=== PATIENT | female | born 1965 | race Asian ===

== ENCOUNTER 2018-09-03 11:53 | Outpatient (CLI) | payer OTHER | END 2018-09-03 21:29 | disposition home or self-care (01) | LOC: US 11:53 | DX: R10.13 Epigastric pain (principal) ==

== ENCOUNTER 2020-08-24 12:55 | Outpatient (CLI) | payer OTHER | END 2020-08-24 19:14 | disposition home or self-care (01) | LOC: RAD 12:55 | PROVIDERS: ATTEND Nurse Practitioner Family | DX: M06.4 Inflammatory polyarthropathy (principal); M79.7 Fibromyalgia ==

== ENCOUNTER 2020-09-03 10:59 | Emergency (ER) | payer OTHER ==
[~2020-09-03] VITALS: Ht 165.1 cm; Wt 74.8 kg
[2020-09-03 11:08] VITALS: TEMP 98.6
[2020-09-03 14:25] VITALS: BP 121/78
== END 2020-09-03 14:29 | disposition home or self-care (01) ==
LOC: ED 10:59
DX: S42.211A Unspecified displaced fracture of surgical neck of right humerus, initial encounter for closed fracture (principal); W10.8XXA Fall (on) (from) other stairs and steps, initial encounter; Y92.89 Other specified places as the place of occurrence of the external cause
CPT/HCPCS: 96372; 99283; J1885

== ENCOUNTER 2020-09-09 10:49 | Outpatient (CLI) | payer OTHER | END 2020-09-09 20:13 | disposition home or self-care (01) | LOC: CT 10:49 | PROVIDERS: ATTEND Physician Assistant | DX: S42.221A 2-part displaced fracture of surgical neck of right humerus, initial encounter for closed fracture (principal) ==

== ENCOUNTER 2020-10-15 11:38 | Outpatient (CLI) | payer OTHER | END 2020-10-15 23:59 | disposition home or self-care (01) | LOC: RAD 11:38 | PROVIDERS: ATTEND Physician Assistant | DX: M25.511 Pain in right shoulder (principal) ==

== ENCOUNTER 2020-12-03 11:10 | Outpatient (CLI) | payer OTHER | END 2020-12-03 21:31 | disposition home or self-care (01) | LOC: RAD 11:10 | PROVIDERS: ATTEND Nurse Practitioner Family | DX: E55.9 Vitamin D deficiency, unspecified (principal); M06.09 Rheumatoid arthritis without rheumatoid factor, multiple sites; M06.4 Inflammatory polyarthropathy; M85.89 Other specified disorders of bone density and structure, multiple sites; M25.511 Pain in right shoulder ==

== ENCOUNTER 2021-01-24 13:02 | Outpatient (CLI) | payer OTHER | END 2021-01-24 22:30 | disposition home or self-care (01) | LOC: MRI 13:02 | PROVIDERS: ATTEND Physician Assistant | DX: M25.511 Pain in right shoulder (principal) ==

== ENCOUNTER 2022-08-16 08:46 | Outpatient (CLI) | payer OTHER | END 2022-08-16 23:56 | disposition home or self-care (01) | LOC: LABW 08:46 | PROVIDERS: ATTEND Podiatrist | DX: B35.1 Tinea unguium (principal) | CPT/HCPCS: 36415; 84450; 84460 ==

== ENCOUNTER 2022-09-18 13:25 | Outpatient (CLI) | payer OTHER | END 2022-09-18 18:59 | disposition home or self-care (01) | LOC: LABW 13:25 | PROVIDERS: ATTEND Podiatrist | DX: B35.1 Tinea unguium (principal) | CPT/HCPCS: 36415; 84450; 84460 ==

== ENCOUNTER 2023-01-17 10:00 | Day surgery (SDC) | payer OTHER | END 2023-01-17 12:35 | disposition home or self-care (01) | LOC: OR 10:00 | PROVIDERS: ATTEND Internal Medicine Gastroenterology | PROC: 0DBL8ZZ Excision of Transverse Colon, Via Natural or Artificial Opening Endoscopic (ICD-10-PCS; principal; 2023-01-17) | DX: D12.3 Benign neoplasm of transverse colon (principal); K64.8 Other hemorrhoids; Z12.11 Encounter for screening for malignant neoplasm of colon | CPT/HCPCS: J2704; J7120 ==